=== PATIENT | female | born 1935 | race Two or more races ===

== ENCOUNTER 2021-01-27 00:05 | Emergency (ER) | payer MEDICARE, OTHER ==
[~2021-01-27] VITALS: Ht 167.6 cm; Wt 63.5 kg
--- NOTE | 2021-01-27 00:15 | NUR ---
[facility] FOR EVALUATION OF L SIDED BODY PAIN, INCLUDING L SHOULDER, L HIP AND L ANKLE PAIN S/P GLF. PT REPORTED HITTING HER HEAD BUT DENIED KO. ALERT AND OX4 ON TRIAGE. VSS. WILL CONT TO MONITOR ,
--- NOTE | 2021-01-27 00:18 | NUR ---
ER MD AT BEDSIDE TO EVAL PT WITH ORDERS RECEIVED.
--- NOTE | 2021-01-27 00:26 | NUR ---
PT WAS TAKEN TO CT
[2021-01-27] MEDS ORDERED: HYDROCODONE/APAP 5/325MG TABLET PO ONE (00:30)
[2021-01-27] MEDS ORDERED: HYDROCODONE/APAP 5/325MG TABLET ONE (00:30)
[2021-01-27] MEDS ORDERED: HYDR-3972 PO (02:21)
--- NOTE | 2021-01-27 02:30 | NUR ---
SPOKE TO JUSTINA FROM [facility] REGARDING PT BEING SENT BACK
--- NOTE | 2021-01-27 02:57 | NUR ---
PT IS MEDICALLY STABLE FOR D/C PER MD. PT WAS INSTRUCTED TO WEAR HER MEDICAL BOOT AT HOME . Patient discharged to home in stable condition. Rx and Written and verbal after care instructions given. Patient verbalizes understanding of instruction.
[2021-01-27 03:33] VITALS: BP 121/59
[2021-01-27] MEDS ORDERED: OXYC5CAP18 PO (11:39)
== END 2021-01-27 02:57 | disposition home or self-care (01) ==
LOC: ER 00:07
DX: S92.355A Nondisplaced fracture of fifth metatarsal bone, left foot, initial encounter for closed fracture (principal); S00.83XA Contusion of other part of head, initial encounter; S40.022A Contusion of left upper arm, initial encounter; E78.5 Hyperlipidemia, unspecified; K21.9 Gastro-esophageal reflux disease without esophagitis; F32.9 Major depressive disorder, single episode, unspecified; M81.0 Age-related osteoporosis without current pathological fracture; E03.9 Hypothyroidism, unspecified; Z79.899 Other long term (current) drug therapy; W01.0XXA Fall on same level from slipping, tripping and stumbling without subsequent striking against object, initial encounter; Y93.89 Activity, other specified; Y92.89 Other specified places as the place of occurrence of the external cause; Y99.8 Other external cause status
CPT/HCPCS: 70450-TC; 72125-TC; 73030-TC; 73080-TC; 73130-TC; 73521; 73630-TC